=== PATIENT | male | born 1945 | race Caucasian/White ===

== ENCOUNTER 2017-03-10 14:34 | Emergency (ER) | payer OTHER ==
[~2017-03-10] VITALS: Ht 180.3 cm; Wt 120.5 kg
[2017-03-10] MEDS ORDERED: FURO20TA2 PO (15:04)
[2017-03-10] MEDS ORDERED: LANAPROST OU (15:04)
[2017-03-10] MEDS ORDERED: COUM2.5T17 PO (15:04)
[2017-03-10] MEDS ORDERED: DIGO0.12 PO (15:04)
[2017-03-10] MEDS ORDERED: OMEP20CA3 PO ×2 (15:04)
[2017-03-10] MEDS ORDERED: COUM1TAB17 PO (15:04)
[2017-03-10] MEDS ORDERED: VALS1TAB49 PO (15:04)
[2017-03-10] MEDS ORDERED: VITA-182 PO (15:04)
[2017-03-10] MEDS ORDERED: METO-398 PO (15:04)
[2017-03-10] MEDS ORDERED: FLOM5CAP PO (15:04)
[2017-03-10] MEDS ORDERED: SPIR25TA2 PO (15:04)
[2017-03-10] MEDS ORDERED: BRIM2OPD OS (15:04)
[2017-03-10] MEDS ORDERED: FINA5TAB2 PO (15:04)
--- NOTE | 2017-03-10 15:32 | REP ---
Chest one-view HISTORY: Chest pain Comparison: None The lungs are clear. The heart is normal in size. The pulmonary vasculature is normal in appearance. A cardiac pacemaker is present. Impression: No acute disease. Signed by Dante Patricia MD 03/10/2017 03:23 P
[2017-03-10 15:56] LABS: BASO # 0.1 K/mm3 (0.0-0.2); BASO % 1.9 % (0.0-1.0); EOS # 0.1 K/mm3 (0.0-0.50); EOS % 1.5 % (0.0-3.0); LARGE UNSTAINED CELL # 0.3 K/mm3 (0.0-0.4); LARGE UNSTAINED CELL % 4.2 % (0.0-4.0); LYMPH # 1.7 K/mm3 (1.5-4.5); LYMPH % 28.3 % (24.0-44.0); MEAN CORPUSCULAR HEMOGLOBIN 32.8 pg (27.0-33.0); MEAN CORPUSCULAR HGB CONC 35.2 g/dl (32.0-36.5); MEAN CORPUSCULAR VOLUME 93.2 fl (80.0-96.0); MONO # 0.4 K/mm3 (0.0-0.8); MONO % 6.6 % (0.0-5.0); NEUTROPHILS # 3.5 K/mm3 (1.8-7.7); NEUTROPHILS % 57.4 % (36.0-66.0); PLATELET COUNT, AUTOMATED 248 k/mm3 (150-450); RED CELL DISTRIBUTION WIDTH 12.6 % (11.5-14.5); WHITE BLOOD COUNT 6.1 K/mm3 (4.0-10.0)
[2017-03-10 16:19] LABS: ALBUMIN 4.1 GM/DL (3.2-5.2); ALBUMIN/GLOBULIN RATIO 1.11 (1.00-1.93); ALKALINE PHOSPHATASE 62 U/L (45-117); ALT/SGPT 41 U/L (12-78); ANION GAP 8 MEQ/L (8-16); AST/SGOT 20 U/L (15-37); BILIRUBIN,DIRECT < 0.1 MG/DL (0.0-0.2); BILIRUBIN,TOTAL 0.3 MG/DL (0.2-1.0); BLOOD UREA NITROGEN 21 MG/DL (7-18); CALCIUM LEVEL 9.2 MG/DL (8.8-10.2); CARBON DIOXIDE LEVEL 25 MEQ/L (21-32); CHLORIDE LEVEL 103 MEQ/L (98-107); CREATININE FOR GFR 0.96 MG/DL (0.70-1.30); GLOMERULAR FILTRATION RATE > 60.0 (>42); GLUCOSE, FASTING 94 MG/DL (83-110); POTASSIUM SERUM 3.9 MEQ/L (3.5-5.1); SODIUM LEVEL 136 MEQ/L (136-145); TOTAL PROTEIN 7.8 GM/DL (6.4-8.2)
--- NOTE | 2017-03-10 19:41 | ECGEPIP ---
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
[2017-03-10 20:01] VITALS: BP 154/90
== END 2017-03-10 20:06 | disposition short-term general hospital (02) ==
LOC: M ED 14:34
DX: T82.897A Other specified complication of cardiac prosthetic devices, implants and grafts, initial encounter (principal); I25.9 Chronic ischemic heart disease, unspecified; H40.9 Unspecified glaucoma; Z85.46 Personal history of malignant neoplasm of prostate; I49.9 Cardiac arrhythmia, unspecified; Z87.891 Personal history of nicotine dependence